=== PATIENT | female | born 1965 ===

== ENCOUNTER 2024-10-13 12:05 | Emergency (ER) | payer BC, SELFPAY ==
[2024-10-13 12:13] VITALS: BP 124/78; PULSE 105; RESP 16; TEMP 36.6; O2SAT 98
--- NOTE | 2024-10-13 12:36 | ED.URI ---
HPI - URI/Sore Throat General Chief Complaint: Upper Respiratory Infection Stated Complaint: Upper Respiratory Symptoms Time Seen by Provider: 10/13/24 12:37 Source: patient and RN notes reviewed Mode of arrival: ambulatory Limitations: no limitations History of Present Illness HPI Narrative: 59-year-old female presented for complaint of nasal congestion drainage, head pressure, right ear pain and cough. Onset 1 month. Symptoms have been worsening since onset. Has taken Sudafed, Mucinex, and takes daily antihistamines. She denies wheezing, nausea vomiting, diarrhea, fevers or chills. MD elicited complaint: cough Related Data Home Medications ?Medication ?Instructions ?Recorded ?Confirmed ?Last Taken ?Type atorvastatin 10 mg tablet mg 10/13/24 10/13/24 History Allergies Allergy/AdvReac Type Severity Reaction Status Date / Time No Known Allergies Allergy Verified 10/13/24 12:26 Review of Systems Review of Systems: CONSTITUTIONAL: Denies malaise, body aches, chills, sweats, fever EYES: Denies visual changes, redness, or discharge ENT: Reports rhinorrhea, congestion, sinus pain, otalgia, sore throat CARDIOVASCULAR: Denies chest pain, palpitations, edema RESPIRATORY: Reports cough, post nasal drainage. Denies dyspnea GASTROINTESTINAL: Denies abdominal pain, nausea, vomiting, diarrhea SKIN: Denies rash or itching NEUROLOGIC: Reports headache PMFSH Past Medical History Medical History Encounter for screening colonoscopy Family History Family History Mother Breast cancer, Onset Age: 60 Sibling Breast cancer Social History Social History Smoking status: Never smoker Alcohol intake: never Substance use: never Substance use type: does not use Lack of Transportation: No Lack of Food: Never True Current Housing: I Have Housing Concerned About Future Housing: No Difficulty Paying Gas/Electric Bills: No Difficulty Paying for Meds: No Currently Unemployed: No Education: Master's Degree or Higher Difficulty w/ Childcare or Family Care: No Living arrangements: with family Occupation/Education: occupation Additional occupation/education comments: Teacher Gender identity (if verbalized by the patient): Female Sexual Orientation (if Verbalized by the Patient): Straight or Heterosexual Exam Narrative: GENERAL: mildly Ill-appearing, nontoxic no acute distress. EYES: conjunctivae clear ENT: Mucous membranes moist. Nasal congestion noted. Left TM pearly driscoll with dull light reflex; Right TM erythematous, bulging and intact with purulent effusion; canal not erythematous, no drainage no tragal tenderness. Oropharynx erythematous without lesions or exudate, no drooling, no hoarseness, no trismus, uvula midline. NECK: Supple. No lymphadenopathy CHEST: Clear to auscultation, breath sounds equal. No wheezing, rhonchi, rales, or stridor. No respiratory distress, speaks in full sentences. HEART: Regular rate and rhythm. SKIN: Warm, dry, no rash. NEURO: Alert and oriented x3. PSYCH: Normal mood and affect Course Course Emergency Course: Patient is aware of diagnosis, understands and agrees to treatment plan. Anticipatory guidance given. Patient agrees to follow-up as directed and is aware of reasons to seek care at the emergency department. Portions of this record may have been created with voice recognition software Level of Care: Express Care Visit Vital Signs Vital signs: Vital Signs Temperature 97.9 F 10/13/24 12:13 Pulse Rate 105 H 10/13/24 12:13 Respiratory Rate 16 10/13/24 12:13 Blood Pressure 124/78 10/13/24 12:13 Pulse Oximetry 98 10/13/24 12:13 Temperature 97.9 F 10/13/24 12:13 Pulse Rate 105 H 10/13/24 12:13 Respiratory Rate 16 10/13/24 12:13 Blood Pressure 124/78 10/13/24 12:13 Pulse Oximetry 98 10/13/24 12:13 reviewed MDM - URI/Sore Throat MDM Narrative Medical decision making narrative: Discussed physical exam findings c/w Right AOM and sinusitis. Pt reports a rash after amoxicillin years ago. will send doxycycline. Advised supportive measures and signs/symptoms to go to the ER. Pt is appropriate for outpt treatment and f/u. Differential Diagnosis Differential diagnosis: Likely upper respiratory infection, sinusitis and viral infection Discharge Plan Discharge Clinical Impression: Otitis media, Sinusitis Patient Disposition: Home Condition: Stable Instructions: Antibiotic Form, Sinusitis (ED), Ear Infection (ED) Additional Instructions: Take antibiotics as directed. Recommendations: Continue antihistamines for sinus congestion Flonase nasal spray, 1 spray in each nostril once daily until symptoms improve increase humidity of the air at home. Tylenol 1000mg every 8 hours as needed to reduce fever, pain Please schedule a follow-up visit with your personal physician If your symptoms persist, change or worsen significantly, go to the emergency department for further evaluation. Patient Language: Albanian Prescriptions: New doxycycline hyclate 100 mg tablet 100 mg PO BID 7 Days Qty: 14 0RF No Action atorvastatin 10 mg tablet Follow-up/Referrals: Carlos Landeros M.D. [Primary Care Provider] - Time of Disposition: 12:43
== END 2024-10-13 12:47 | disposition home or self-care (01) ==
PROVIDERS: Emergency Provider Nurse Practitioner Family; PCP Family Medicine
DX: H66.91 Otitis media, unspecified, right ear (principal); J32.9 Chronic sinusitis, unspecified
CPT/HCPCS: 99213; G0463